=== PATIENT | female | born 1950 | race Caucasian/White ===

== ENCOUNTER → 2016-03-15 | Outpatient (CLI) | payer BC ==
--- NOTE | 2016-03-15 14:00 | BD ---
EXAMINATION TYPE: MG DEXA axial skeleton. DATE OF EXAM: 03/15/2016 10:37 AM COMPARISON: Prior DEXA bone scan September 20, 2012 CLINICAL HISTORY: Postmenopausal female Height: 61.5 Weight: 110.2 FRAX RISK QUESTIONS: Alcohol (3 or more units per day): NO Family History (Parent hip fracture): NO Glucocorticoids (More than 3mos): NO (Ex: prednisone, prednisolone, methylprednisolone, dexamethasone, and hydrocortisone). History of Fracture in Adulthood: NO Secondary Osteoporosis: 1. Type 1 Diabetes: NO 2. Hyperthyroidism: NO 3. Menopause before 45: NO 4. Malnutrition: NO 5. Chronic liver disease: NO Rheumatoid Arthritis: NO Current Tobacco Use: NO RISK FACTORS HISTORY OF: Hip Fracture (Right/Left): NO Spine Fracture: NO History of Wrist Fracture: YES/ BILATERAL When: A CHILD Surgery to Spine/Hip(right/left)/Wrist (right/left): NO Family History of Osteoporosis: NO Active: YES Diet low in dairy products/other sources of calcium: NO Postmenopausal woman: AGE 51 Lost more than 2 inches in height since high school: NO Frequent falls: NO Adrenal Insufficiency: NO MEDICATIONS: LIPITOR, TAKING AN ANTIBIOTIC CURRENTLY(ANTHRAMYCIN) Additional History: EXAM MEASUREMENTS: Bone mineral densitometry was performed using the [employer] System. Bone mineral density as measured about the Lumbar spine is: ----- L1-L4(G/cm2): 1.004 T Score Values are as follows: ----- L2: -1.9 ----- L3: -1.2 ----- L4: -1.2 ----- L1-L4: -1.5 Bone mineral density has: DECREASED -6.0 % since study of: 09.20.2012 Bone mineral density about the R hip (g/cm2): 0.886 Bone mineral density about the L hip (g/cm2): 0.817 T Score values are as follows: -----R Neck: -1.1 -----L Neck: -1.6 -----R Intertrochanter: 0.5 -----L Intertrochanter: 0.0 Bone mineral density has: DECREASED -5.1 % since study of: 09.20.2012 IMPRESSION: Osteopenia (T Score between -2.5 and -1 as noted by T score values overall in low back and at femoral neck level in both hips remains present. Bone density is decreased or diminished from prior. There i s slightly increased risk of fracture and the patient may be considered for treatment. Re-Screen 1-2 years. NOTE: T-SCORE=SD OF THE YOUNG ADULT MEAN.
== END | disposition home or self-care (01) ==
LOC: RADBDWWP 09:55
PROVIDERS: ATTEND Family Medicine
DX: M85.80 Other specified disorders of bone density and structure, unspecified site (principal); Z78.0 Asymptomatic menopausal state
CPT/HCPCS: 77080

== ENCOUNTER → 2016-03-21 | Outpatient (CLI) | payer SELFPAY | END | disposition home or self-care (01) | LOC: LABWHC1 12:57 | PROVIDERS: ATTEND Internal Medicine | DX: Z00.5 Encounter for examination of potential donor of organ and tissue (principal) | CPT/HCPCS: 36415 ==

== ENCOUNTER → 2017-10-03 | Outpatient (CLI) | payer BC ==
--- NOTE | 2017-10-05 12:49 | MM ---
Reason for exam: screening (asymptomatic). Last mammogram was performed 5 years ago. History: Patient is postmenopausal. Took progesterone for 3 years. Physical Findings: A clinical breast exam by your physician is recommended on an annual basis and results should be correlated with mammographic findings. MG 3D Screening Mammo W/Cad Bilateral CC and MLO view(s) were taken. Prior study comparison: September 20, 2012, bilateral digital screening mammo w/CAD. July 01, 2011, bilateral digital screening mammo w/CAD. The breast tissue is heterogeneously dense. This may lower the sensitivity of mammography. Finding: There are typically benign round calcifications in the right breast. There is no discrete abnormality. New benign vascular calcifications in the left breast. ASSESSMENT: Benign, BI-RAD 2 RECOMMENDATION: Routine screening mammogram of both breasts in 1 year.
== END | disposition home or self-care (01) ==
LOC: RADMAMWWP 10:48
PROVIDERS: ATTEND Family Medicine
DX: Z12.31 Encounter for screening mammogram for malignant neoplasm of breast (principal)
CPT/HCPCS: 77063; 77067

== ENCOUNTER → 2018-09-13 | Outpatient (CLI) | payer BC ==
--- NOTE | 2018-09-13 17:48 | CT ---
EXAMINATION TYPE: CT brain wo con DATE OF EXAM: 09/13/2018 COMPARISON: None INDICATION: Headaches, primarily on LT side DLP: 1036 mGycm, Automated exposure control for dose reduction was used. CONTRAST: None CT of the brain is performed utilizing 3 mm thick sections through the posterior fossa and 3 mm thick sections through the remaining calvarium. Study is performed within 24 hours of arrival to the hosp [facility]. No abnormal hyperdensity is present to suggest an acute intracranial hemorrhage. No mass lesion is evident. No acute infarcts are evident. Ventricles and sulci are appropriate for the patient age. Paranasal sinuses and mastoid air cells within the [id number] are clear. IMPRESSIONS: 1. Normal CT Brain
== END | disposition home or self-care (01) ==
LOC: RADCTMAIN 16:51
PROVIDERS: ATTEND Family Medicine
DX: R51 Headache (principal)
CPT/HCPCS: 70450

== ENCOUNTER → 2019-01-09 | Outpatient (CLI) | payer BC ==
--- NOTE | 2019-01-09 15:39 | BD ---
EXAMINATION TYPE: Axial Bone Density DATE OF EXAM: 01/09/2019 COMPARISON: 03.15.2016 CLINICAL HISTORY: M [age] Height: 61 Weight: 108.7 FRAX RISK QUESTIONS: Alcohol (3 or more units per day): no Family History (Parent hip fracture): no Glucocorticoids (More than 3mos): no (Ex: prednisone, prednisolone, methylprednisolone, dexamethasone, and hydrocortisone). History of Fracture in Adulthood: no Secondary Osteoporosis: 1. Type 1 Diabetes: no 2. Hyperthyroidism: no 3. Menopause before 45: no 4. Malnutrition: no 5. Chronic liver disease: no Rheumatoid Arthritis: no Current Tobacco Use: no RISK FACTORS HISTORY OF: History of Wrist Fracture: right When: as a child Family History of Osteoporosis: no Active: yes Diet low in dairy products/other sources of calcium: no Postmenopausal woman: age 51 Lost more than 2 inches in height since high school: no MEDICATIONS: bone building medicine, sleeping pills as needed, vitamins Additional History: EXAM MEASUREMENTS: Bone mineral densitometry was performed using the [employer] System. Bone mineral density as measured about the Lumbar spine is: ----- L1-L4(G/cm2): 1.048 T Score Values are as follows: ----- L2: -1.6 ----- L3: -0.6 ----- L4: -0.9 ----- L1-L4: -1.1 Bone mineral density has: increased 4.5 % since study of: 03.15.2016 Bone mineral density about the R hip (g/cm2): 1.079 Bone mineral density about the L hip (g/cm2): 0.842 T Score values are as follows: -----R Neck: 0.3 -----L Neck: -1.4 -----R Total: 0.5 -----L Total: -0.6 Bone mineral density has: increased 4.9 % since study of: 03.15.2016 IMPRESSION: Osteopenia (T Score between -2.5 and -1). There is slightly increased risk of fracture and the patient may be considered for treatment. Re-Screen 2-5 years. NOTE: T-SCORE=SD OF THE YOUNG ADULT MEAN.
--- NOTE | 2019-01-11 09:54 | MM ---
Reason for exam: screening (asymptomatic). Last mammogram was performed 1 year and 3 months ago. History: Patient is postmenopausal. Took progesterone for 3 years. Physical Findings: A clinical breast exam by your physician is recommended on an annual basis and results should be correlated with mammographic findings. MG 3D Screening Mammo W/Cad Bilateral CC and MLO view(s) were taken. Prior study comparison: October 03, 2017, bilateral MG 3d screening mammo w/cad. September 20, 2012, bilateral digital screening mammo w/CAD. The breast tissue is heterogeneously dense. This may lower the sensitivity of mammography. There are benign appearing vascular calcifications in the left breast. There is no discrete abnormality. ASSESSMENT: Benign, BI-RAD 2 RECOMMENDATION: Routine screening mammogram of both breasts in 1 year.
== END | disposition home or self-care (01) ==
LOC: RADMAMWWP 14:18
PROVIDERS: ATTEND Family Medicine
DX: Z12.31 Encounter for screening mammogram for malignant neoplasm of breast (principal); M85.88 Other specified disorders of bone density and structure, other site
CPT/HCPCS: 77063; 77067; 77080

== ENCOUNTER → 2020-07-16 | Outpatient (CLI) | payer MEDICARE ==
--- NOTE | 2020-07-17 15:00 | MM ---
Reason for exam: screening (asymptomatic). Last mammogram was performed 1 year and 6 months ago. History: Patient is postmenopausal. Took progesterone for 3 years. Physical Findings: A clinical breast exam by your physician is recommended on an annual basis and results should be correlated with mammographic findings. MG 3D Screening Mammo W/Cad Bilateral CC and MLO view(s) were taken. Prior study comparison: January 09, 2019, bilateral MG 3d screening mammo w/cad. October 03, 2017, bilateral MG 3d screening mammo w/cad. The breast tissue is heterogeneously dense. This may lower the sensitivity of mammography. No significant changes when compared with prior studies. ASSESSMENT: Benign, BI-RAD 2 RECOMMENDATION: Routine screening mammogram of both breasts in 1 year.
== END | disposition home or self-care (01) ==
LOC: RADMAMWWP 14:26
PROVIDERS: ATTEND Family Medicine
DX: Z12.31 Encounter for screening mammogram for malignant neoplasm of breast (principal); Z78.0 Asymptomatic menopausal state
CPT/HCPCS: 77063; 77067

== ENCOUNTER → 2021-08-25 | Outpatient (CLI) | payer MEDICARE ==
--- NOTE | 2021-08-25 15:03 | BD ---
EXAMINATION TYPE: Axial Bone Density DATE OF EXAM: 08/25/2021 COMPARISON: NONE CLINICAL HISTORY: 71 years year old Female. ICD-10 CODE: M85.9 DISORDER OF BONE DENSITY Height: 5 FT 1/2 IN Weight: 105 FRAX RISK QUESTIONS: Alcohol (3 or more units per day): NO Family History (Parent hip fracture): NO Glucocorticoids (More than 3mos): NO (Ex: prednisone, prednisolone, methylprednisolone, dexamethasone, and hydrocortisone). History of Fracture in Adulthood: NO Secondary Osteoporosis: 1. Type 1 Diabetes: NO 2. Hyperthyroidism: NO 3. Menopause before 45: YES 4. Malnutrition: NO 5. Chronic liver disease: NO Rheumatoid Arthritis: NO Current Tobacco Use: NO RISK FACTORS HISTORY OF: Surgery to Spine/Hip(right/left)/Wrist (right/left): NO Family History of Osteoporosis: NO Active: YES Diet low in dairy products/other sources of calcium: NO Postmenopausal woman: YES Take estrogen and/or progesterone medications: NO Lost more than 2 inches in height since high school: NO Frequent falls: NO Poor Health: GOOD Hyperparathyroidism: NO Adrenal Insufficiency: NO MEDICATIONS: Osteoporosis Medications: YES Which medication: ALENDRONATE How Lon-3 YEARS Additional Medications: SLEEP AID, ALENDRONATE, Additional History: EXAM MEASUREMENTS: Bone mineral densitometry was performed using the [employer] System. Bone mineral density as measured about the Lumbar spine is: ----- L1-L4(G/cm2): 1.063 T Score Values are as follows: ----- L1: -1.5 ----- L2: -1.7 ----- L3: -0.5 ----- L4: -0.5 ----- L1-L4: -1.0 Bone mineral density has: INCREASED 1.6 % since study of: 2019 Bone mineral density about the R hip (g/cm2): 0.997 Bone mineral density about the L hip (g/cm2): 0.822 T Score values are as follows: -----R Neck: -0.3 -----L Neck: -1.6 -----R Total: -0.1 -----L Total: -0.5 Bone mineral density has: DECREASED -3.2 % since study of: 2019 FRAX%s: The graph provided illustrates a 9.2 % chance for a major osteoporotic fx and a 1.7 % chance for the hips probability for fx in 10 years time. IMPRESSION: No evidence for osteoporosis or osteopenia NOTE: T-SCORE=SD OF THE YOUNG ADULT MEAN.
--- NOTE | 2021-08-26 11:11 | MM ---
Reason for Exam: Screening (asymptomatic). Last mammogram was performed 1 year(s) and 1 month(s) ago. Patient History: Menarche at age 11. First Full-Term at age 23. Postmenopausal. Patient used Progesterone for 3 years. Risk Values: Melisa 5 year model risk: 1.6%. NCI Lifetime model risk: 4.1%. Prior Study Comparison: 10/03/2017 Bilateral Screening Mammogram, [facility]. 01/09/2019 Bilateral Screening Mammogram, [facility]. 07/16/2020 Bilateral Screening Mammogram, [facility]. Tissue Density: The breast tissue is heterogeneously dense. This may lower the sensitivity of mammography. Findings: Analyzed By CAD. There is no suspicious group of microcalcifications or new suspicious mass in either breast. Overall Assessment: Benign, BI-RAD 2 Management: Screening Mammogram of both breasts in 1 year. A clinical breast exam by your physician is recommended on an annual basis and results should be correlated with mammographic findings. Electronically signed and approved by: Thierno Flood M.D. Radiologis
== END | disposition home or self-care (01) ==
LOC: RADMAMWWP 10:49
PROVIDERS: ATTEND Family Medicine
DX: Z12.31 Encounter for screening mammogram for malignant neoplasm of breast (principal); M85.9 Disorder of bone density and structure, unspecified
CPT/HCPCS: 77063; 77067; 77080

== ENCOUNTER 2022-11-15 06:27 | Day surgery (SDC) | payer MEDICARE ==
[2022-11-15 06:50] VITALS: TEMP 97.9
[2022-11-15] MEDS ORDERED: LACTATED RINGERS 1,000 ML IV ONE (07:03)
[2022-11-15] MEDS ORDERED: PROPOFOL 10 MG/ML 20 ML VIAL IV ONE (07:27)
--- NOTE | 2022-11-15 07:52 | P.PCN ---
Date of Procedure: 11/15/22 Procedure(s) Performed: Brief history: Patient is a pleasant 72-year-old white female scheduled for an elective upper endoscopy as well as colonoscopy as a part of evaluation of intermittent dysphagia to solids and screening for colon cancer Procedure performed: Esophagogastroduodenoscopy with biopsy Colonoscopy with biopsy and snare polypectomy Preoperative diagnosis: Intermittent dysphagia to solids Screening for colon cancer Anesthesia: MAC Procedure: After informed consent was obtained from the patient was brought into the endoscopy unit and IV sedation was administered by anesthesia under continuous monitoring. Initially upper endoscopy was done. The Olympus GF 160 video endoscope was inserted inserted into the mouth and esophagus intubated without any difficulty and was gradually advanced into the stomach and duodenum and carefully examined. The bulb and second part of the duodenum appeared normal. The scope was then withdrawn into the stomach adequately insufflated with air and upon careful examination the antrum had scattered erosions and biopsies were done from this area. Mucosa of the body, cardia and fundus appeared normal. The scope was then withdrawn into the esophagus. The GE junction was located at 40 cm to the incisors. It appeared regular with no erythema erosions or ulcerations. Rest of the esophagus appeared normal. Patient tolerated the procedure well. At this time the patient continued to remain sedation. Initial digital rectal examination was normal. Olympus CF 160 video colonoscope was then inserted into the rectum and gradually advanced to the sigmoid: Further advancement was not possible. Scope was removed and a pediatric colonoscopy was introduced into the rectum and gradually advanced into the cecum without any difficulty. Careful examination was performed as the scope was gradually being withdrawn. The prep was excellent. The cecum had 3 mm sessile polyp removed by cold biopsy. In the ascending colon there was a 1 cm polyp removed by snare polypectomy. Rest of the, ascending colon, transverse colon, descending colon, sigmoid colon and rectum appeared normal. Scattered sigmoid diverticulosis. Retroflexion was performed in the rectum and no lesions were noted. Patient tolerated the procedure well. Impression: 1. Upper endoscopy revealed antral erosive gastritis but no evidence of esophagitis or esophageal stricture 2. Colonoscopy revealed scattered sigmoid diverticulosis, 3 mm cecal polyp status post cold biopsy and 1 cm ascending colon polyp status post polypectomy Recommendations: Findings of this examination were discussed with the patient as well as her family. She was advised to follow with the biopsy results. If the biopsy reveals adenoma she can have a repeat colonoscopy in 3 years.
[2022-11-15 08:04] VITALS: PULSE 62
[2022-11-15 08:14] VITALS: BP 119/75; RESP 17
== END 2022-11-15 08:40 | disposition home or self-care (01) ==
LOC: ORWHC2ENDO 06:27
PROVIDERS: ATTEND Internal Medicine Gastroenterology
DX: Z12.11 Encounter for screening for malignant neoplasm of colon (principal); K63.5 Polyp of colon; K57.30 Diverticulosis of large intestine without perforation or abscess without bleeding; K29.60 Other gastritis without bleeding; E78.5 Hyperlipidemia, unspecified; Z87.19 Personal history of other diseases of the digestive system
CPT/HCPCS: 88305; 45380; 45385; 43239; J2704

== ENCOUNTER 2022-12-22 07:37 | Day surgery (SDC) | payer MEDICARE ==
[2022-12-19 16:01] VITALS: BMI 19.8
[~2022-12-22 07:37] MED LIST: FAMOTIDINE 20 MG/2 ML VIAL IV PRN; ONDANSETRON 4 MG/2 ML VIAL IVP PRN; metroNIDAZOLE-NS PMX 500 MG in SALINE 1 100ML.BAG IVPB PRN
[2022-12-22] MEDS ORDERED: MIDAZOLAM 2 MG/2 ML VIAL IV PRN (07:54)
[2022-12-22] MEDS ORDERED: LIDOCAINE 1% (10MG/ML) FOR IV START INTRADERMA PRN (07:54)
[2022-12-22] MEDS ORDERED: HYDROmorphone 0.5 MG/0.5 ML SYRINGE IVP PRN (07:54)
[2022-12-22] MEDS ORDERED: fentaNYL (PF) 50 MCG/ML 2 ML AMP IV PRN (07:54)
[2022-12-22] MEDS ORDERED: ONDANSETRON 4 MG/2 ML VIAL IVP ONE (07:54)
[2022-12-22] MEDS ORDERED: DEXAMETHASONE SOD PHOSPHATE 4 MG/ML 1 ML VIAL IV ONE (07:54)
[2022-12-22] MEDS ORDERED: LACTATED RINGERS 1,000 ML IV SCH (07:54)
[2022-12-22] MEDS ORDERED: PROPOFOL 10 MG/ML 20 ML VIAL IV ONE (08:56)
[2022-12-22] MEDS ORDERED: MIDAZOLAM 2 MG/2 ML VIAL ONE (08:56)
[2022-12-22] MEDS ORDERED: SUCCINYLCHOLINE CHLORIDE 200 MG/10 ML VIAL IV ONE (08:56)
[2022-12-22] MEDS ORDERED: KETOROLAC 15 MG/ML 1 ML VIAL ONE (08:56)
[2022-12-22] MEDS ORDERED: ePHEDrine 50 MG/ML 1 ML VIAL ONE (08:56)
[2022-12-22] MEDS ORDERED: LIDOCAINE 1% INJ 10MG/ML (20 ML MDV) ONE (08:56)
[2022-12-22] MEDS ORDERED: fentaNYL (PF) 50 MCG/ML 2 ML AMP ONE (08:56)
[2022-12-22] MEDS ORDERED: BUPIVACAINE (PF) 0.5% 30 ML VIAL SQ ONE ×2 (09:26→09:31)
[2022-12-22] MEDS ORDERED: LIDOCAINE 1%-EPI 1:100,000 50 ML VIAL SQ ONE ×2 (09:26→09:33)
[2022-12-22] MEDS ORDERED: LACTATED RINGERS 1,000 ML IV ONE ×2 (10:23)
[2022-12-22 11:18] VITALS: TEMP 97.2
[2022-12-22 12:21] VITALS: BP 104/64; PULSE 76; RESP 16
--- NOTE | 2022-12-22 12:25 | P.OP ---
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 Postoperative Diagnosis: Same Procedure(s) Performed: Excision of a 6.5 x 4 cm right pentecostal basal cell carcinoma with reconstruction utilizing a bilateral advancement flap closure with a secondary defect measuring 13 x 8 cm, performed with frozen section Excision of a 4 cm x 2 and half centimeter left pentecostal squamous cell carcinoma with reconstruction utilizing bilateral advancement flap closure with a secondary defect measuring 8 x 5 cm, performed with frozen section Anesthesia: GETA Surgeon: Damian Santana Estimated Blood Loss (ml): 5 Pathology: other (Frozen section analysis was performed on both lesions) Condition: stable Disposition: PACU Indications for Procedure: Patient was found to have a large basal cell carcinoma the right pentecostal and a left pentecostal squamous cell carcinoma. Surgical removal was recommended. All risks, benefits, and alternative therapies were discussed in detail. Consent was obtained and all questions were answered. Operative Findings: Frozen section analysis demonstrated that with both specimens all margins were negative for tumor Description of Procedure: Patient was taken to the operative room and placed in the supine position. A general inhalation anesthetic was administered the patient by mask and subsequently intubated with a cuffed endotracheal tube the department of anesthesia with a functioning IV line in place. Patient was monitored throughout the entire case by the department of anesthesia. The face was sterilely prepped and draped in usual fashion. The cancers bilaterally were marked and anesthetized with lidocaine 1% with epinephrine 1 100,000. 10 minutes were allowed wait for full vasoconstrictive effects to take place. After appropriate anesthetization time the right pentecostal cancer which measured 6.5 x 4 cm was excised with a Superblade and delicate plastic scissors and a Brown-Adson forceps. The blue margin was marked with a blue suture the inferior margin was marked with a black suture and sent for frozen section analysis. All margins came back negative for tumor. This left a large defect we developed an H-type incision and removal of burrows triangles we did extensive undermining in all directions and we utilized the flaps to close this large defect. We closed the deep subcuticular area and deep dermal area with a 3-0 PDS and a 4-0 Monocryl the deep dermal layer with 4-0 Monocryl and the skin was closed with a 6-0 nylon in a running nonlocking fashion excellent approximation was obtained. Steri-Strips were applied along with a compression dressing. Attention was then paid to the left lesion which measured 4 x 2 and half centimeters which was a squamous cell carcinoma. We excised this with a Superblade and delicate plastic scissors and a Brown-Adsparker forceps and developed a bilateral advancement flap secondary defect was 8 x 5 cm on the first lesion are secondary defect measured 13 x 8 cm. The an H-type incision was performed and an H-type lasted was performed with utilize for closure. Again we did extensive undermining all directions the flaps were closed again the secondary defect on the first lesion measured 13 x 8 cm the secondary defect measured on the left side measured 8 x 5 cm we utilized flaps for closure closest deeply with 4-0 PDS and 4-0 Monocryl and the skin was closed with a 50 and 6-0 nylon in a running locking fashion excellent approximation was obtained Steri-Strips were applied and a compression dressing utilizing Medipore tape. The patient tolerated this well and follow-up will be in the office in 1 week.
== END 2022-12-22 12:29 | disposition home or self-care (01) ==
LOC: OR 07:37
PROVIDERS: ATTEND Otolaryngology
DX: C44.319 Basal cell carcinoma of skin of other parts of face (principal); E78.5 Hyperlipidemia, unspecified; F10.90 Alcohol use, unspecified, uncomplicated; Z79.899 Other long term (current) drug therapy
CPT/HCPCS: 88305; 88331; 14301; 14302 ×2; J2250; J0330; J1100; J2405; J0690; J2001; J3010; J3490; J1885; J2704; J1836; J0665

== ENCOUNTER → 2022-12-29 | Outpatient (CLI) | payer MEDICARE ==
--- NOTE | 2022-12-29 15:13 | XR ---
EXAMINATION TYPE: XR foot limited LT DATE OF EXAM: 12/29/2022 1:43 PM INDICATION: Patient age:Female; 72 years old; Reason for study: M79.672 Pain in left foot; PHH. COMPARISON: None TECHNIQUE: The left foot was examined in the AP and lateral projections. FINDINGS: No evidence of any acute osseous pathology. Hallux valgus deformity. No evidence of soft tissue swell ing. Dorsal midfoot osteophytosis. Joints are preserved. Incidental note is made of symphalangism of the fifth distal interphalangeal joint. IMPRESSION: 1. No evidence of acute fracture. 2. Hallux valgus deformity.
== END | disposition home or self-care (01) ==
LOC: RADXRMAIN 13:19
PROVIDERS: ATTEND Family Medicine
DX: M79.672 Pain in left foot (principal); M20.12 Hallux valgus (acquired), left foot

== ENCOUNTER → 2023-08-02 | Outpatient (CLI) | payer MEDICARE ==
--- NOTE | 2023-08-02 23:05 | MM ---
Reason for Exam: Screening (asymptomatic). Last mammogram was performed 1 year(s) and 11 month(s) ago. Patient History: Menarche at age 11. First Full-Term at age 23. Postmenopausal. Patient used Progesterone for 3 years. Risk Values: Melisa 5 year model risk: 1.6%. NCI Lifetime model risk: 3.7%. Prior Study Comparison: 01/09/2019 Bilateral Screening Mammogram, [facility]. 07/16/2020 Bilateral Screening Mammogram, [facility]. 08/25/2021 Bilateral MG 3D screening mammo w/cad, [facility]. Tissue Density: The breasts are heterogeneously dense, which may obscure small masses. Findings: Analyzed By CAD. The pattern is symmetrical. No significant interval change is evident. Benign vascular calcifications present bilaterally. No suspicious groups of microcalcifications, spiculated or lobular masses, architectural distortion or other secondary signs of malignancy are mammographically apparent. Overall Assessment: Benign, BI-RAD 2 Management: Screening Mammogram of both breasts in 1 year. A negative mammogram report should not preclude additional follow up of suspicious palpable abnormalities. Patient should continue monthly self breast exam. A clinical breast exam by your physician is recommended on an annual basis and results should be correlated with mammographic findings. Note on Melisa scores and lifetime risk: 1. A Melisa score greater than 3% is considered moderate risk. If this is the case, consider specialist referral to assess eligibility for a risk reducing agent. 2. If overall lifetime risk for the development of breast cancer is 20% or higher, the patient may qualify for future screening with alternating mammogram and breast MRI. Electronically signed and approved by: Jarad Ashraf D.O. Radiologis
== END | disposition home or self-care (01) ==
LOC: RADMAMWWP 09:38
PROVIDERS: ATTEND Family Medicine
DX: Z12.31 Encounter for screening mammogram for malignant neoplasm of breast (principal); Z78.0 Asymptomatic menopausal state
CPT/HCPCS: 77063; 77067

== ENCOUNTER → 2023-11-21 | Outpatient (CLI) | payer MEDICARE ==
--- NOTE | 2023-11-21 23:20 | BD ---
EXAMINATION TYPE: Axial Bone Density DATE OF EXAM: 11/21/2023 CLINICAL HISTORY: 73 years old Female. ICD-10 CODE: M85.9 DISORDER OF BONE DENSITY AND STRUCTURE Height: 5ft Weight: 104 FRAX RISK QUESTIONS: History of Fracture in Adulthood: no Secondary Osteoporosis: 3. Menopause before 45: yes RISK FACTORS HISTORY OF: MEDICATIONS: EXAM MEASUREMENTS: Bone mineral densitometry was performed using the [employer] System. Bone mineral density as measured about the Lumbar spine is: ----- L1-L4(G/cm2): 1.043 T Score Values are as follows: ----- L1: -1.8 ----- L2: -1.8 ----- L3: -0.5 ----- L4: -0.7 ----- L1-L4: -1.1 Z Score Values are as follows: ----- L1: 0.5 ----- L2: 0.5 ----- L3: 1.8 ----- L4: 1.6 ----- L1-L4: 1.2 Bone mineral density has: Decreased -1.9% since study of: 08-25-21 Bone mineral density about the R hip (g/cm2): 0.992 Bone mineral density about the L hip (g/cm2): 0.887 T Score values are as follows: -----R Neck: -1.0 -----L Neck: -1.6 -----R Total: -0.1 -----L Total: -1.0 Z Score values are as follows: -----R Neck: 1.2 -----L Neck: 0.7 -----R Total: 2.0 -----L Total: 1.2 Bone mineral density has: Decreased -3.1% since study of: 08-25-21 FRAX%s: The graph provided illustrates a 9.9% chance for a major osteoporotic fx and a 2.1% chance fo r the hips probability for fx in 10 years time. IMPRESSION: Osteopenia (T Score between -2.5 and -1). There is slightly increased risk of fracture and the patient may be considered for treatment. Re-Screen 2-5 years. NOTE: T-SCORE=SD OF THE YOUNG ADULT MEAN. [facility], , 11/21/2023 11:18 PM
== END | disposition home or self-care (01) ==
LOC: RADBDWWP 09:56
PROVIDERS: ATTEND Family Medicine
DX: M85.9 Disorder of bone density and structure, unspecified
CPT/HCPCS: 77080